=== PATIENT | male | born 1940 | race Caucasian/White ===

== ENCOUNTER 2018-09-02 12:46 | Outpatient (CLI) | payer MEDICARE, BC ==
[~2018-09-02 12:46] MED LIST: Gadobenate Dimeglumine 529 MG/1 ML (20ML VIAL) ONE
--- NOTE | 2018-09-02 13:36 | RAD ---
4 views lumbar spine. HISTORY: M54.16 acute low back radiculopathy and pain. AP, lateral, flexion, extension views lumbar spine obtained. Images demonstrate pedicle screws with hardware fusing the L2, L3 and L4 levels. No significant anter o or retrolisthesis seen on flexion or extension views. There is some loss of the normal lordotic curvature of the lumbar spine. Disc space hardware is placed at the L2-3 and L3-4 levels. Changes of spondylosis seen at the L1-2 disc space. IMPRESSION: 1: Changes of spondylosis at L1-2. 2: L2, L3 and L4 anterior and posterior spinal fusion.
[2018-09-02 13:42] LABS: Estimated GFR-MDRD - POC Greater than 90
--- NOTE | 2018-09-02 14:05 | CT ---
"PRELIMINARY REPORT" CT LUMBAR SPINE: HISTORY: Acute radicular back pain M54.16. FINDINGS: Axial images are obtained with coronal and sagittal reconstructions. T12-L1: Unremarkable L1: There is an area of dense sclerotic lesion in the posterior aspect of the left L1 vertebral body extending to the base of the pedicle. This measures approximately 1.5 cm. This area appears to have been present on the patient's previous MRI from 09/14/2015 and is likely benign. L1-2: There is mild facet hypertrophy. The central canal and neural foramen are patent. Pedicle screws are seen fusing the L2, L3 and L4 vertebral levels. L2-3: Intervertebral disc hardware is seen at this level. Pedicle screws at L2 and L3 are in good pos ition. No significant degree of central stenosis seen. The patient has had previous laminotomy changes at L2, laminectomy changes at L3 levels. L3-4: No significant degree of central stenosis. The patient has had previous L3 laminectomy. L3 and L4 pedicle hardware is in good position. There is also intervertebral disc hardware seen at the L3-4 level. L4-5: Intervertebral disc degeneration is seen. Vacuum disc changes seen. Bilateral facet hypertrophy is present. There is a broad-based disc bulge. L5-S1: Vacuum disc changes seen at this level. Bilateral facet hypertrophy is seen worse on the left than on the right. No significant degree of central stenosis seen. IMPRESSION: Vacuum disc changes seen at L4-5 and L5-S1. The patient has had previous laminectomy changes at the L 3 level. Transcribed Date/Time: 09/02/2018 2:22 PM
--- NOTE | 2018-09-02 15:09 | MRI ---
MRI LUMBAR SPINE WITH AND WITHOUT CONTRAST: Date: 09/02/18 Multiplanar, multisequential imaging lumbar spine obtained with multiplanar reconstruction. INDICATION: Acute lumbar radicular symptoms. Low back pain. History of prior lumbar surgery. Comparison made to MRI lumbar spine dated 03/05/15. Correlation made to CT from earlier today on 08/19 10/06. FINDINGS: Surgical changes are noted when compared to prior MRI of 03/05/15. There are now pedicle screws in pl robert transfixing L2, L3, and L4 vertebra. Interbody implants at these levels. The vertebral bodies maintain height. Degenerative disc changes are noted throughout. Loss of disc sp robert is prominent at L2-3 and L3-4. At T12-L1, no significant disc bulge. No central canal or foraminal stenosis. At L1-2, broad based disc bulge flattens the thecal sac. Facet hypertrophy. Mild central canal stenos is. Pedicle screws bilaterally at L2. These screws obscure the lateral recesses; however, correlate with today's CT to assess screw position. At L2-3, slight posterior listhesis. Diffuse disc bulge. Facet hypertrophy. No significant central ca nal stenosis. Foraminal encroachment secondary to facet hypertrophy. Pedicle screws at L3. At L3-4, no significant disc bulge or protrusion. Facet hypertrophy. No significant central canal agustin nosis. Mild bilateral foraminal narrowing due to facet hypertrophy. At L4-5, broad based disc bulge is slightly more prominent than on the prior MRI. This flattens the t hecal sac. Facet and ligamentous hypertrophy. Moderate central canal stenosis. Bilateral foraminal st enosis. At L5-S1, there is an annular fissure with small focal protrusion centrally indenting the thecal sac. Facet hypertrophy is prominent. Mild central canal stenosis. There is mild left foraminal stenosis d ue to disc osteophyte complex and facet hypertrophy. Fissure and disc protrusion at L5-S1 is more pro minent than on the prior MRI. IMPRESSION: 1. Postoperative changes now noted at L2, L3, and L4 as described above. 2. Disc bulge at L4-5 and annular fissure with small protrusion at L5-S1 as described above. POS: [facility]
== END 2018-09-02 12:47 | disposition home or self-care (01) ==
LOC: TBSIIMAG 12:46
PROVIDERS: ATTEND Surgery
DX: M47.26 Other spondylosis with radiculopathy, lumbar region (principal); M51.16 Intervertebral disc disorders with radiculopathy, lumbar region; M51.17 Intervertebral disc disorders with radiculopathy, lumbosacral region; M47.27 Other spondylosis with radiculopathy, lumbosacral region; Z98.1 Arthrodesis status
CPT/HCPCS: 72110; 72131; 72158; 82565

== ENCOUNTER 2020-03-24 14:10 | Outpatient (CLI) | payer MEDICARE, BC ==
--- NOTE | 2020-03-24 15:40 | MRI ---
MR the lumbar spine without contrast: 03/24/2020 History: Low back pain, prior back surgeries COMPARISON: 09/02/2018 TECHNIQUE: Multiplanar multisequence MR images were obtained of lumbar spine without IV contrast FINDINGS: On the basis of 5 lumbar type vertebral bodies, conus medullaris terminates at theL1 level. Sagittal STIR imaging demonstrates no focal area of osseous marrow edema. Evaluation is limited secon cb to artifact associated with multilevel postoperative hardware which includes bilateral L2, L3, and L4 pedicle screws as well as intervertebral disc devices at L2-3 and L3-4. T12-L1:Mild bilateral facet hypertrophy. No central canal or neural foraminal stenosis. L1-2:Disc space narrowing with disc desiccation and mild disc bulge. Mild bilateral facet hypertrophy . No significant central canal or neural foraminal stenosis. Stable nonspecific T1 and T2 hypointense lesion within the L1 vertebral body posteriorly measuring 1.8 cm. L2-3:Bilateral laminectomy changes. Disc space narrowing with disc desiccation. No significant centra l canal stenosis. Neural foramina are poorly assessed secondary to artifact from postoperative hardware. L3-4:Disc space narrowing with disc desiccation. Bilateral laminectomy changes. Neural foramina poorl y assessed secondary to hardware artifact. No central canal stenosis. L4-5:There is disc space narrowing with disc desiccation and mild disc bulge. There is bilateral face t hypertrophy. There is vacuum disc formation. There is moderate/severe bilateral neural foraminal stenosis, right greater than left. No central canal stenosis. L5-S1:Bilateral facet hypertrophy, left greater than right. There is disc space narrowing with disc d esiccation and vacuum disc formation. No significant central canal stenosis. Mild/moderate left neural foraminal stenosis. Image retroperitoneal structures demonstrateno acute findings. Sagittal imaging of the pelvis demonst rates the colon Jailyn approximately 2.7 cm anterior to the ventral cortex of the sacrum. IMPRESSION: Postoperative and degenerative changes within the lumbar spine as detailed above.
== END 2020-03-24 14:11 | disposition home or self-care (01) ==
LOC: TBSIIMAG 14:10
PROVIDERS: ATTEND Orthopaedic Surgery
DX: M54.5 Low back pain (principal); M47.816 Spondylosis without myelopathy or radiculopathy, lumbar region; Z98.890 Other specified postprocedural states
CPT/HCPCS: 72148